=== PATIENT | female | born 1960 | race African-American/Black ===

== ENCOUNTER 2022-05-28 15:14 | Emergency (ER) | payer MEDICARE, OTHER ==
[~2022-05-28] VITALS: Ht 165.1 cm; Wt 70.0 kg
[~2022-05-28 15:14] MED LIST: OMEP40CA20 PO; PARO30TA76 PO; TRAZ300T11 PO
[2022-05-28 15:24] VITALS: BP 122/78
== END 2022-05-28 17:32 | disposition left against medical advice (07) ==
LOC: ER 15:14
DX: Z53.21 Procedure and treatment not carried out due to patient leaving prior to being seen by health care provider (principal); R06.02 Shortness of breath; R94.31 Abnormal electrocardiogram [ECG] [EKG]
CPT/HCPCS: 93005

== ENCOUNTER 2022-06-09 09:28 | Emergency (ER) | payer MEDICARE ==
[~2022-06-09] VITALS: Ht 165.1 cm; Wt 92.0 kg
[2022-06-09 09:30] VITALS: BP 130/96
[2022-06-09 11:45] LABS: BASOPHILS % 0.1 % (0.0-2.0); EOSINOPHILS % 0.2 % (0.0-5.0); HEMOGLOBIN. 13.1 g/dL (12.0-16.0); LYMPHOCYTES % 12.2 % (20.0-50.0); MEAN CORPUSCULAR HEMOGLOBIN 27.8 pg (28.0-32.0); MEAN CORPUSCULAR VOLUME 84.5 fL (81.0-99.0); MEAN PLATELET VOLUME 7.5 fl (7.4-10.4); MONOCYTES % 2.6 % (2.0-8.0); NEUTROPHILS % 84.9 % (40.0-76.0); PLATELET 445 x1000/uL (130-400); RED BLOOD CELL COUNT 4.73 mill/uL (4.2-5.4); RED CELL DISTRIBUTION WIDTH 14.5 % (11.6-14.6)
[2022-06-09 11:52] LABS: CHLORIDE 104 mEq/L (98-107)
[2022-06-09] MEDS ORDERED: FAMOTIDINE 20MG TABLET PO ONE (14:15)
[2022-06-09] MEDS ORDERED: PREDNISONE 20MG TABLET PO ONE (14:15)
[2022-06-09] MEDS ORDERED: DIPHENHYDRAMINE 25MG CAPSULE PO ONE (14:15)
[2022-06-09 15:44] LABS: BG CARBOXYHEMOGLOBIN 1.3 % (0.5-1.5); BG DEOXYHEMOGLOBIN 1.6 % (0.0-5.0); BG FRACTION INSPIRED OXYGEN 21; BG HCO3 ACT 18.5 mmol/L (22.0-26.0); BG METHEMOGLOBIN 0.3 % (0.0-1.5); BG OXYGEN SATURATION 98.4 % (92.0-98.5); BG OXYHEMOGLOBIN 96.8 % (94.0-97.0); BG PCO2 22.2 mmHg (35.0-45.0); BG PH 7.539 (7.350-7.450); BG PO2 96.4 mmHg (75.0-100.0); BG SAMPLE SITE RIGHT RADIAL; BG TOTAL HEMOGLOBIN 13.9 g/dL (12.0-18.0); BG VENT MODE ROOM AIR
[2022-06-09] MEDS ORDERED: METHYLPREDNISOLONE SOD SUCC 125 MG/2 ML VIAL IV ONE (16:30)
[2022-06-09] MEDS ORDERED: FAMOTIDINE 20MG/2ML VIAL IV ONE (16:30)
[2022-06-09] MEDS ORDERED: DIPHENHYDRAMINE 50MG/ML VIAL IV ONE (16:30)
[2022-06-09] MEDS ORDERED: IOHEXOL-350 100 ML BOTTLE ONE ×3 (16:34→18:48)
== END 2022-06-09 20:06 | disposition home or self-care (01) ==
LOC: ER 09:28
DX: R06.02 Shortness of breath (principal); R05.8 Other specified cough; R00.0 Tachycardia, unspecified; L27.0 Generalized skin eruption due to drugs and medicaments taken internally; M79.89 Other specified soft tissue disorders; T36.0X5A Adverse effect of penicillins, initial encounter; Y92.018 Other place in single-family (private) house as the place of occurrence of the external cause
CPT/HCPCS: 36415; 36600; 71045; 71275; 80053; 82375; 82805; 83880; 84484; 85025; 93005; 96374; 96375; 99285; J1200; J2930; J3490; Q9967

== ENCOUNTER 2023-09-14 19:30 | Emergency (ER) | payer MEDICARE, OTHER ==
[~2023-09-14] VITALS: Ht 167.6 cm; Wt 107.0 kg
[~2023-09-14 19:30] MED LIST changes: -PARO30TA76 PO; +PARO30TA99 PO
[2023-09-14 19:37] VITALS: O2SAT 95
[2023-09-14 22:40] LABS: BASOPHILS % 0.7 % (0.0-2.0); EOSINOPHILS % 0.8 % (0.0-5.0); HEMATOCRIT. 37.8 % (36.0-48.0); HEMOGLOBIN. 12.2 g/dL (12.0-16.0); LYMPHOCYTES % 43.7 % (20.0-50.0); MEAN CORPUSCULAR HEMOGLOBIN 27.4 pg (28.0-32.0); MEAN CORPUSCULAR HGB CONC 32.2 g/dL (31.0-37.0); MEAN PLATELET VOLUME 7.1 fl (7.4-10.4); MONOCYTES % 3.8 % (2.0-8.0); PLATELET 423 x1000/uL (130-400); RED BLOOD CELL COUNT 4.45 mill/uL (4.2-5.4); RED CELL DISTRIBUTION WIDTH 13.9 % (11.6-14.6); WHITE BLOOD COUNT 8.5 x1000/uL (4.5-11.0)
[2023-09-14 23:01] LABS: ACETAMINOPHEN < 2 ug/mL (10-30); ALANINE AMINOTRANSFERASE 20 IU/L (10-49); ALBUMIN 4.9 g/dL (3.2-4.8); ASPARTATE AMINOTRANSFERASE 27 IU/L (<34); BILIRUBIN TOTAL 0.3 mg/dL (0.1-1.0); CALCIUM 9.1 mg/dL (8.7-10.4); CARBON DIOXIDE 28 mEq/L (21-32); CHLORIDE 108 mEq/L (98-107); CREATININE 0.8 mg/dL (0.6-1.0); ETHANOL BLOOD 293 mg/dL (<10); GLUCOSE 95 mg/dL (70-105); POTASSIUM 3.7 mEq/L (3.5-5.1); PROTEIN TOTAL 8.2 g/dL (6.0-8.3); SODIUM 142 mEq/L (136-145); UREA NITROGEN BLOOD 13 mg/dL (9-23)
[2023-09-14] MEDS: QUETIAPINE FUMARATE 25MG TABLET PO SCH (23:29)
[2023-09-14] MEDS: ZOLPIDEM TARTRATE 5MG TABLET PO ONE (23:49)
[2023-09-14] MEDS: OMEPRAZOLE 20MG CAPSULE EXTENDED RELEASE PO ONE (23:50)
[2023-09-14] MEDS: CITALOPRAM HYDROBROMIDE 10MG TABLET PO NR (23:50)
[2023-09-15 05:20] VITALS: TEMP 98
[2023-09-15 10:53] VITALS: BP 135/60; PULSE 72; RESP 17
== END 2023-09-15 11:56 | disposition home or self-care (01) ==
LOC: ER 19:30
DX: F10.129 Alcohol abuse with intoxication, unspecified (principal); R45.851 Suicidal ideations; Y90.9 Presence of alcohol in blood, level not specified; F41.9 Anxiety disorder, unspecified; J44.9 Chronic obstructive pulmonary disease, unspecified; F32.9 Major depressive disorder, single episode, unspecified; E78.00 Pure hypercholesterolemia, unspecified; I10 Essential (primary) hypertension; Z20.822 Contact with and (suspected) exposure to COVID-19
CPT/HCPCS: 36415; 80053; 80307; 80320; 80329; 82962; 85025; 87426; 99285; G0480